=== PATIENT | female | born 1985 | race Caucasian/White ===

== ENCOUNTER → 2016-06-06 | Outpatient (CLI) | payer OTHER | LOC: FIMAGING 07:27 | PROVIDERS: ATTEND Nurse Practitioner | DX: D25.2 Subserosal leiomyoma of uterus (principal); N92.0 Excessive and frequent menstruation with regular cycle; Z97.5 Presence of (intrauterine) contraceptive device ==

== ENCOUNTER 2016-09-08 14:53 | Emergency (ER) | payer OTHER ==
[2016-09-08 14:58] VITALS: BP 118/57; PULSE 76; RESP 16; TEMP 97.7; O2SAT 98
--- NOTE | 2016-09-08 15:12 | EDPHY ---
H & P Stated Complaint: here for HIV prophaxis Time Seen by Provider: 09/08/16 15:11 HPI/ROS: CHIEF COMPLAINT: HIV post exposure prophylaxis HISTORY OF PRESENT ILLNESS: The patient is a 31-year-old female whose boyfriend has known HIV. She states that she broke up with him at the end of July. Up until that time she had been taking truvada daily as prophylaxis. Since breaking up she only took it every 2nd or 3rd day. She took her last dose on Saturday. They got back together last night and had sex but the condom broke. She was advised by her doctor to come to the emergency department to be started on post exposure prophylaxis. She states that her boyfriend has also been somewhat unreliable with his medication compliance. She has no symptoms currently. She will follow up with [facility] on Saturday. REVIEW OF SYSTEMS: Constitutional: denies: chills, fever, recent illness, recent injury EENTM: denies: blurred vision, double vision, nose congestion Respiratory: denies: cough, shortness of breath Cardiac: denies: chest pain, irregular heart rate, lightheadedness, palpitations Gastrointestinal/Abdominal: denies: abdominal pain, diarrhea, nausea, vomiting, blood streaked stools Genitourinary: denies: dysuria, frequency, hematuria, pain Musculoskeletal: denies: joint pain, muscle pain Skin: denies: lesions, rash, jaundice, bruising Neurological: denies: headache, numbness, paresthesia, tingling, dizziness, weakness Hematologic/Lymphatic: denies: blood clots, easy bleeding, easy bruising Immunologic/allergic: denies: HIV/AIDS, transplant EXAM: GENERAL: Well-appearing, well-nourished and in no acute distress. HEAD: Atraumatic, normocephalic. EYES: Pupils equal round and reactive to light, extraocular movements intact, sclera anicteric, conjunctiva are normal. ENT: TMs normal, nares patent, oropharynx clear without exudates. Moist mucous membranes. NECK: Normal range of motion, supple without lymphadenopathy or JVD. LUNGS: Breath sounds clear to auscultation bilaterally and equal. No wheezes rales or rhonchi. HEART: Regular rate and rhythm without murmurs, rubs or gallops. ABDOMEN: Soft, nontender, normoactive bowel sounds. No guarding, no rebound. No masses appreciated. BACK: No CVA tenderness, no spinal tenderness, step-offs or deformities EXTREMITIES: Normal range of motion, no pitting or edema. No clubbing or cyanosis. NEUROLOGICAL: Cranial nerves II through XII grossly intact. Normal speech, normal gait. 5/5 strength, normal movement in all extremities, normal sensation PSYCH: Normal mood, normal affect. SKIN: Warm, dry, normal turgor, no visible rashes or lesions. Source: Patient Exam Limitations: No limitations - Personal History LMP (Females 10-55): IUD In Place Current Tetanus/Diphtheria Vaccine: Yes Current Tetanus Diphtheria and Acellular Pertussis (TDAP): Yes - Medical/Surgical History Hx Asthma: No Hx Chronic Respiratory Disease: No Hx Diabetes: No Hx Cardiac Disease: No Hx Renal Disease: No Hx Cirrhosis: No Hx Alcoholism: No Hx HIV/AIDS: No Hx Splenectomy or Spleen Trauma: No Other PMH: PMH:ortho, cracked rib. PSH: breast reduction, oroth surgery, - Family History Significant Family History: No pertinent family hx - Social History Smoking Status: Never smoked Alcohol Use: Sober Drug Use: None Constitutional: Initial Vital Signs Temperature (C) 36.5 C 09/08/16 14:56 Heart Rate 76 09/08/16 14:56 Respiratory Rate 16 09/08/16 14:56 Blood Pressure 118/57 L 09/08/16 14:56 O2 Sat (%) 98 09/08/16 14:56 O2 Delivery Mode Room Air Allergies/Adverse Reactions: No Known Allergies Allergy (Unverified 09/08/16 14:55) Home Medications: Medication Instructions Recorded Emtricitabine/Tenofovir (Tdf) 1 each PO DAILY #7 tablet 09/08/16 [Truvada 200 mg-300 mg Tablet] IRON 09/08/16 Raltegravir [Isentress] 400 mg PO BID #10 tab 09/08/16 Spironolactone 09/08/16 VITAMIN D 09/08/16 Medical Decision Making ED Course/Re-evaluation: Patient is here requesting post exposure prophylaxis. She will follow up with Saturday with [facility]. Will give her Truvada and ISENTRESS here as well as a short prescription. She is happy with this plan. She declines further workup or testing. Differential Diagnosis: Partial list of the Differential diagnosis considered include but were not limited to; post exposure prophylaxis, and although unlikely based on the history and physical exam, I also considered GC, Chlamydia, gonorrhea, . I discussed these differential diagnoses and the plan with the patient as well as the usual and expected course. The patient understands that the diagnosis is provisional and that in medicine we are not always correct and that further workup is often warranted. Usual and customary warnings were given. All of the patient's questions were answered. The patient was instructed to return to the emergency department should the symptoms at all worsen or return, otherwise to followup with the physician as we discussed. - Data Points Medications Given: Discontinued Medications Emtricitabine/Tenofovir (Truvada) 1 tab PO EDNOW ONE Stop: 09/08/16 15:25 Last Admin: 09/08/16 15:52 Dose: 1 tab Raltegravir (Isentress) 400 mg PO EDNOW ONE Stop: 09/08/16 15:25 Last Admin: 09/08/16 15:52 Dose: 400 mg Departure - Departure Disposition: Home, Routine, Self-Care Clinical Impression: HIV exposure Condition: Fair Instructions: Emtricitabine/Tenofovir (By mouth), Raltegravir (By mouth), Postexposure Prophylaxis (ED) Referrals: Prasanna Chase MD [Medical Doctor] - As per Instructions Prescriptions: Emtricitabine/Tenofovir (Tdf) [Truvada 200 mg-300 mg Tablet] 1 each PO DAILY #7 tablet Raltegravir [Isentress] 400 mg PO BID #10 tab
[2016-09-08] MEDS ORDERED: RALTEGRAVIR 400 MG TAB PO ONE (15:24)
[2016-09-08] MEDS ORDERED: EMTRICITABINE/TENOFOVIR 200MG/300MG TAB PO ONE (15:24)
== END 2016-09-08 16:21 | disposition home or self-care (01) ==
DX: Z20.6 Contact with and (suspected) exposure to human immunodeficiency virus [HIV] (principal)

== ENCOUNTER → 2016-12-17 | Outpatient (CLI) | payer OTHER | LOC: FIMAGING 15:24 | PROVIDERS: ATTEND Internal Medicine | DX: M25.532 Pain in left wrist (principal); W19.XXXA Unspecified fall, initial encounter; S22.42XD Multiple fractures of ribs, left side, subsequent encounter for fracture with routine healing; Z87.81 Personal history of (healed) traumatic fracture ==